=== PATIENT | female | born 1935 | race Caucasian/White ===

== ENCOUNTER 2016-07-20 08:12 | Outpatient (CLI) | payer MEDICARE, BC ==
--- NOTE | 2016-07-20 16:21 | Ultrasound Report ---
PELVIC ULTRASOUND: 07/20/2016 CLINICAL HISTORY: This is a 81-year-old who on preceding ultrasound from 2015 demonstrated a left ovarian cyst measuring 1.7 cm. The present examination is being done for reevaluation of the cyst. The cyst on preceding ultrasound measured 1.7 cm. The patient has had a prior hysterectomy. TECHNIQUE: Transabdominal pelvic ultrasound performed for global evaluation. Transvaginal pelvic ultrasound performed for detailed evaluation. Real-time scanning performed and static images obtained. FINDINGS: Transabdominal and transvaginal ultrasound was done today. On transvaginal ultrasound, there appears to be an echogenic structure within each vaginal recess. Within the right posterior vaginal recess, is an echogenic focus measuring 0.6 cm. Within the left lateral vaginal recess, is seen an echogenic focus measuring 1.2 cm. These foci are nonspecific. They may represent mucus or dystrophic calcification. If patient still has a cervical remnant, these could represent dystrophic calcifications within the cervical remnant. There is some mild shadowing in association with these hyperechoic structures. They are most likely of benign etiology. A left Bartholin duct cyst is once again noted measuring 2.8 cm by 2.7 cm by 3.1 cm. The right ovary has been surgically removed. The left ovary measures 4.4 cm by 3.4 cm by 2.6 cm for a volume of 20.3 cubic centimeters. The left ovary contains two small cysts within it, the largest one measures 2.2 cm by 1.9 cm by 1.8 cm. This cyst has a benign configuration. It is only minimally increased in size as compared to preceding exam. IMPRESSION: 1. TWO HYPERECHOIC STRUCTURES ARE NOTED WITHIN THE LATERAL VAGINAL RECESSES OR WITHIN A CERVIX REMNANT. THESE PROBABLY REPRESENT DYSTROPHIC CALCIFICATIONS OR MUCUS. 2. A 2.8 CM BY 2.7 CM BY 3.1 CM LEFT BARTHOLIN CYST IS ONCE AGAIN NOTED. THIS CYST WAS SEEN ON PRECEDING EXAM. IT SHOWS ONLY MILD INCREASE IN SIZE COMPARED TO PRECEDING EXAM. 3. TWO SMALL BENIGN CYSTS ARE NOTED IN THE LEFT OVARY, THE LARGEST OF WHICH MEASURES 2.2 CM BY 1.9 CM BY 1.8 CM. THIS CYST ONLY SHOWS MINIMALLY INCREASED SIZE COMPARED TO PRECEDING EXAM WHEN IT ACTUALLY HAD A MAXIMAL DIAMETER OF 1.7 CM. 15:9:38 JOB #: [id number] EXT JOB #: [id number] FELA
== END 2016-07-20 08:13 | disposition home or self-care (01) ==
LOC: DI 08:12
PROVIDERS: ATTEND Internal Medicine
DX: N75.0 Cyst of Bartholin's gland (principal); N83.202 Unspecified ovarian cyst, left side; R93.8 Abnormal findings on diagnostic imaging of other specified body structures
CPT/HCPCS: 76830; 76856

== ENCOUNTER 2016-08-03 07:30 | Day surgery (SDC) | payer MEDICARE, BC ==
[2016-08-03] MEDS ORDERED: KETOROLAC 0.45% OPHTH DROPS LEFTEYE ONE (07:52)
[2016-08-03] MEDS ORDERED: LACTATED RINGERS 500 ML IV ONE (08:03)
[2016-08-03] MEDS ORDERED: levoFLOXacin 0.5% OPHTH DROPS 5 ML OPTH ONE (09:21)
[2016-08-03] MEDS ORDERED: NEOMYCIN/POLYMYX/DEXAMETH OPHTH OINT OPTH ONE (09:21)
[2016-08-03] MEDS ORDERED: EPINEPHrine 1 MG/ML AMP IO ONE (09:21)
[2016-08-03] MEDS ORDERED: BRIMONIDINE 0.2% OPHTH DROPS 5 ML OPTH ONE (09:21)
[2016-08-03] MEDS ORDERED: PROPARACAINE 0.5% OPHTH DROPS 15 ML OPTH ONE (09:21)
[2016-08-03] MEDS ORDERED: CHONDR SULF/HYALURONATE SYRINGE IO ONE (09:22)
[2016-08-03] MEDS ORDERED: BSS/LIDOCAINE/EPINEPHRINE 1 ML SYRINGE IO ONE (09:22)
[2016-08-03] MEDS ORDERED: MIDAZOLAM 2 MG/2 ML VIAL IVP ONE (09:31)
[2016-08-03] MEDS ORDERED: LIDOCAINE-MPF 2% 5 ML VIAL IM ONE (09:31)
[2016-08-03] MEDS ORDERED: PROPOFOL 200 MG/20 ML VIAL IVP ONE (09:31)
[2016-08-03 10:07] VITALS: BP 122/57
--- NOTE | 2016-08-03 10:10 | OPERATIVE REPORT ---
DATE OF SURGERY: 08/03/2016 00:00:00 PREOPERATIVE DIAGNOSIS: Visually impairing cataract, left eye. POSTOPERATIVE DIAGNOSIS: Visually impairing cataract, left eye. NAME OF PROCEDURE: Phacoemulsification cataract extraction with intraocular lens implant of the left eye, clear corneal lateral approach, format type TT. SURGEON: Tavo Lucas MD ANESTHESIA: Topical 0.5% tetracaine with monitored sedation and intracameral Shugarcaine given at the beginning of the surgical procedure. COMPLICATIONS: None. DESCRIPTION OF SURGICAL PROCEDURE: The patient was brought to the OR and, after IV and cardiac leads were placed, the patient was then prepped and draped in the usual ophthalmic manner. An adhesive pl astic drape was placed over the eye, a slit was made in the drape, and topical anesthetic was placed on the eye. A lid speculum was used to separate the eyelids and expose the eye. The eye was held se curely with the Colibri forceps. A Micro-Sharp blade was used to make a self-sealing stab wound 2 o' clock hours to the left of the planned clear corneal incision. Viscoelastic was used to fill the an terior chamber, and a crescent blade was used to make the initial vertical component of the self-seal ing clear corneal incision. A 2.75 keratome was used to complete the incision. A circular tear caps ulorrhexis was performed. The nucleus was hydrodissected, and phacoemulsification of the cataract wa s performed without complication. The I/A unit was used to remove the cortical material from the eye . The posterior capsule was polished crystal clear with the Diane capsule polisher, and again the I/ A unit was used to remove any loose particulate matter after polishing the capsule. Viscoelastic was used to inflate the capsular bag. An AcrySof lens was inserted into the capsular bag with the loops left at about the 3 o'clock and 9 o'clock meridians. The I/A unit was used to remove as much Viscoe lastic from the eye as possible. BSS was used to fill the anterior chamber, with the wound found to be self-sealing and water tight. Several drops of Quixin were placed on the eye. The lid speculum w as removed. A drop of brimonidine was placed on the eye. Maxitrol ointment was placed on the eye. The eye was patched and shielded, and the patient was taken to the recovery room in good condition. JOB #: [id number] EXT JOB #:[id number]
== END 2016-08-03 07:31 | disposition home or self-care (01) ==
LOC: SDS 07:30
PROVIDERS: ATTEND Specialist
PROC: 08RK3JZ Replacement of Left Lens with Synthetic Substitute, Percutaneous Approach (ICD-10-PCS; principal; 2016-08-03 09:00)
DX: H26.9 Unspecified cataract (principal); Z90.710 Acquired absence of both cervix and uterus; Z87.891 Personal history of nicotine dependence
CPT/HCPCS: 66984; V2632

== ENCOUNTER 2016-11-04 07:17 | Outpatient (CLI) | payer MEDICARE, BC ==
[2016-11-04 11:26] LABS: BASOPHILS % (AUTO) 0.5 %; EOSINOPHILS # (AUTO) 0.1 10^3/uL (0.0-0.7); EOSINOPHILS % (AUTO) 2.7 %; HCT - HEMATOCRIT 40.2 % (37.0-47.0); HGB - HEMOGLOBIN 13.4 g/dL (12.0-16.0); LYMPHOCYTES # (AUTO) 1.7 10^3/uL (1.5-3.5); LYMPHOCYTES % (AUTO) 34.9 %; MEAN CORPUSCULAR HEMOGLOBIN 30.1 pg (27.0-31.0); MEAN CORPUSCULAR HGB CONC 33.4 g/dL (32.0-36.0); MEAN CORPUSCULAR VOLUME 90.2 fL (81.0-99.0); MEAN PLATELET VOLUME 10.7 fL (7.9-10.8); MONOCYTES # (AUTO) 0.3 10^3/uL (0.0-1.0); MONOCYTES % (AUTO) 6.6 %; NEUTROPHILS # (AUTO) 2.7 10^3/uL (1.5-6.6); NEUTROPHILS % (AUTO) 55.3 %; NUCLEATED RED BLOOD CELLS AUTO 0.1 /100WBC; RED BLOOD COUNT 4.45 10^6/uL (4.20-5.40); RED CELL DISTRIBUTION WIDTH 12.7 % (12.0-15.0); UNCORRECTED WHITE BLOOD COUNT 4.9 x10^3/uL; WHITE BLOOD COUNT 4.9 x10^3/uL (4.8-10.8)
[2016-11-04 11:40] LABS: ALBUMIN/GLOBULIN RATIO 1.4 (1.0-2.2); BILIRUBIN,TOTAL 0.4 mg/dL (0.2-1.0); BUN - BLOOD UREA NITROGEN 19 mg/dL (6-20); CALCIUM 9.5 mg/dL (8.5-10.3); CARBON DIOXIDE - CO2 31 mmol/L (21-32); CHLORIDE 102 mmol/L (101-111); CHOL/HDL RATIO 2.9 (<4.4); CHOLESTEROL 250 mg/dL; CREATININE 0.8 mg/dL (0.4-1.0); GFR - MDRD 69 (>89); GLUCOSE 97 mg/dL (70-100); HDL CHOLESTEROL 87 mg/dL; LDL/HDL RATIO 1.7 (<4.4); POTASSIUM 3.7 mmol/L (3.5-5.0); SODIUM 139 mmol/L (135-145); TOTAL PROTEIN 6.8 g/dL (6.7-8.2); TRIGLYCERIDES 57 mg/dL; VLDL CHOLESTEROL 11 mg/dL
== END 2016-11-04 07:18 | disposition home or self-care (01) ==
LOC: LAB.F 07:17
PROVIDERS: ATTEND Family Medicine
DX: E78.5 Hyperlipidemia, unspecified (principal); E55.9 Vitamin D deficiency, unspecified; E03.9 Hypothyroidism, unspecified
CPT/HCPCS: 36415; 80053; 80061; 82306; 84443; 85025

== ENCOUNTER 2017-05-28 11:21 | Emergency (ER) | payer MEDICARE, BC ==
[2017-05-28 11:50] LABS: BASOPHILS % (AUTO) 0.6 %; EOSINOPHILS # (AUTO) 0.1 10^3/uL (0.0-0.7); EOSINOPHILS % (AUTO) 2.8 %; HGB - HEMOGLOBIN 14.2 g/dL (12.0-16.0); LYMPHOCYTES # (AUTO) 1.2 10^3/uL (1.5-3.5); LYMPHOCYTES % (AUTO) 26.4 %; MEAN CORPUSCULAR HEMOGLOBIN 30.1 pg (27.0-31.0); MEAN CORPUSCULAR HGB CONC 33.6 g/dL (32.0-36.0); MEAN CORPUSCULAR VOLUME 89.5 fL (81.0-99.0); MEAN PLATELET VOLUME 9.2 fL (7.9-10.8); MONOCYTES # (AUTO) 0.4 10^3/uL (0.0-1.0); MONOCYTES % (AUTO) 9.1 %; NEUTROPHILS # (AUTO) 2.9 10^3/uL (1.5-6.6); NEUTROPHILS % (AUTO) 61.1 %; PLT - PLATELET COUNT 126 10^3/uL (130-450); RED BLOOD COUNT 4.71 10^6/uL (4.20-5.40); WHITE BLOOD COUNT 4.7 x10^3/uL (4.8-10.8)
[2017-05-28 11:56] LABS: BILIRUBIN,URINE NEGATIVE (NEGATIVE); GLUCOSE, URINE (UA) NEGATIVE (NEGATIVE); KETONES,URINE (UA) NEGATIVE (NEGATIVE); LEUKOCYTE ESTERASE, URINE TRACE (NEGATIVE); NITRITE,URINE NEGATIVE (NEGATIVE); OCCULT BLOOD,URINE NEGATIVE (NEGATIVE); PH,URINE 5.5 PH (5.0-7.5); PROTEIN,URINE NEGATIVE (NEGATIVE); UROBILINOGEN,URINE 0.2 (NORMAL) E.U./dL (NORMAL)
[2017-05-28 12:01] LABS: CLARITY,URINE S (CLEAR)
[2017-05-28 12:03] LABS: ALBUMIN 4.6 g/dL (3.2-5.5); ALBUMIN/GLOBULIN RATIO 1.4 (1.0-2.2); BILIRUBIN,TOTAL 0.6 mg/dL (0.2-1.0); CREATININE 0.7 mg/dL (0.4-1.0); TOTAL PROTEIN 7.8 g/dL (6.7-8.2)
[2017-05-28] MEDS ORDERED: SODIUM CHLORIDE 0.9% 1,000 ML IV ONE (12:03)
[2017-05-28] MEDS ORDERED: DEXAMETHASONE 10 MG/ML VIAL IVP STA (12:03)
[2017-05-28] MEDS ORDERED: KETOROLAC 60 MG/2 ML VIAL IVP STA (12:03)
--- NOTE | 2017-05-28 12:10 | ED Physician Documentation ---
PD HPI BACK PAIN - Stated complaint Stated Complaint: LOWER RT BACK PAIN - Chief complaint Chief Complaint: Abd Pain - History obtained from History obtained from: Patient - History of Present Illness Timing - onset: Enter time (0700), Today Timing - duration: Hours Timing - details: Abrupt onset, Still present Location: Lower, Right Quality: Pain, Spasm, Sharp Associated symptoms: No: Fever, Weakness, Numbness, Incontinent of urine, Unable to urinate, Hematuria, Incontinent of stool Improves with: Rest, Position Worsened by: Movement, Lifting, Twisting Contributing factors: Other (spent the day in the garden yesterday) Similar symptoms before: Diagnosis (back strain never this bad) Recently seen: Not recently seen - Additional information Additional information: Previously healthy 81-year-old female spent the day in her garden yesterday and this morning when she awoke she had some mild pain in her back she went to bend over and had severe pain that wraps around to her groin on the front. She has pain with any movement and pain at rest. Her pain is worse than she has ever had with her back and she is coming to the emergency department for evaluation. She is getting ready to go on a trip to [place] and thinks that she would not do well with this while she is traveling. She would like a note in case she decides to cancel her trip. Review of Systems Constitutional: denies: Fever Eyes: denies: Decreased vision Ears: denies: Ear pain Nose: denies: Congestion Throat: denies: Sore throat Cardiac: denies: Chest pain / pressure Respiratory: denies: Dyspnea, Cough GI: denies: Abdominal Pain, Nausea, Vomiting : denies: Dysuria, Frequency Skin: denies: Rash Musculoskeletal: reports: Back pain. denies: Neck pain Neurologic: denies: Generalized weakness, Focal weakness, Numbness PD PAST MEDICAL HISTORY - Past Medical History Cardiovascular: High cholesterol Respiratory: Other Endocrine/Autoimmune: None GI: None : Kidney stones HEENT: Chronic vision loss Psych: Anxiety Musculoskeletal: Osteoarthritis Derm: Rosacea, Other - Past Surgical History Past Surgical History: Yes General: Cholecystectomy, Colonoscopy /WELLNESS NURSE: Hysterectomy HEENT: Tonsil/Adenoidectomy - Present Medications Home Medications: Ambulatory Orders Medication Instructions Recorded Confirmed Estradiol 0.05 mg Patch [Climara] 1 patch ID ONCE 01/09/15 08/03/16 Cyclobenzaprine [Flexeril] 10 mg PO TID PRN #20 tablet 05/28/17 HYDROcod/ACETAM 5/325 [Olmitz 5/325] 1 - 2 ea PO Q6H PRN #15 tablet 05/28/17 - Allergies Allergies/Adverse Reactions: Allergies Allergy/AdvReac Type Severity Reaction Status Date / Time No Known Drug Allergies Allergy Verified 05/28/17 11:27 - Social History Does the pt smoke?: No Smoking Status: Never smoker Does the pt drink ETOH?: Yes Does the pt have substance abuse?: No - Immunizations Immunizations are current?: Yes - POLST Patient has POLST: Yes PD ED PE NORMAL - Vitals Vital signs reviewed: Yes (normal ) - General General: Alert and oriented X 3, No acute distress, Well developed/nourished - HEENT HEENT: Atraumatic, PERRL, EOMI - Neck Neck: Supple, no meningeal sign - Respiratory Respiratory: No respiratory distress - Abdomen Abdomen: Soft, Non tender - Back Back: No CVA TTP, No spinal TTP, Other (There is specific and reproducible tenderness to the paraspinous muscles on the right lower lumbar spine extending into the sciatic notch. 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, No motor deficit, No sensory deficit, Normal speech Eye Opening: Spontaneous Motor: Obeys Commands Verbal: Oriented GCS Score: 15 - Psych Psych: Normal mood, Normal affect Results - Vitals Vitals: Vital Signs - 24 hr 05/28/17 11:24 Temperature 36.4 C L Heart Rate 68 Respiratory 16 Rate Blood Pressure 118/64 O2 Saturation 98 Oxygen O2 Source Room air - Labs Labs: Laboratory Tests 05/28/17 05/28/17 05/28/17 11:33 11:41 11:41 WBC 4.7 L RBC 4.71 Hgb 14.2 Hct 42.2 MCV 89.5 MCH 30.1 MCHC 33.6 RDW 13.0 Plt Count 126 L MPV 9.2 Neut # 2.9 Lymph # 1.2 L Zapata # 0.4 Eos # 0.1 Baso # 0.0 Absolute Nucleated RBC 0.00 Nucleated RBC % 0.0 Sodium 137 Potassium 4.4 Chloride 97 L Carbon Dioxide 30 Anion Gap 10.0 BUN 15 Creatinine 0.7 Estimated GFR (MDRD) 81 L Glucose 105 H Calcium 10.0 Total Bilirubin 0.6 AST 24 ALT 17 Alkaline Phosphatase 44 Total Protein 7.8 Albumin 4.6 Globulin 3.2 Albumin/Globulin Ratio 1.4 Lipase 19 L Urine Color YELLOW Urine Clarity S Urine pH 5.5 Ur Specific [place] <=1.005 Urine Protein NEGATIVE Urine Glucose (UA) NEGATIVE Urine Ketones NEGATIVE Urine Occult Blood NEGATIVE Urine Nitrite NEGATIVE Urine Bilirubin NEGATIVE Urine Urobilinogen 0.2 (NORMAL) Ur Leukocyte Esterase TRACE H Urine RBC 0-5 Urine WBC 4-5 Ur Squamous Epith Cells MOD Squamous H Urine Bacteria None Seen Ur Microscopic Review INDICATED Urine Culture Comments NOT INDICATED Procedures - IVC sono (time) 1200 Bedside IVC sono: IVC measures (cm) (0.59), IVC collapsed c insp (cm) (complete) , Dehydration (est 3 liters down.) PD MEDICAL DECISION MAKING - ED course Complexity details: reviewed old records, reviewed results, re-evaluated patient , considered differential, d/w patient ED course: 81-year-old female who has been the day in the garden yesterday has acute lower lumbar spasm with radiation into the right groin and she does not have any other radicular findings. She does have specific point tenderness and on interrogation of the inferior vena cava she is found to be significantly dehydrated. She is administered intravenous saline Toradol and dexamethasone. Departure - Departure Disposition: 01 Home, Self Care Clinical Impression: Dehydration Sciatica Qualifiers: Laterality: right Qualified Code(s): M54.31 - Sciatica, right side Condition: Stable Instructions: ED Spasm Back No Trauma, ED Dehydration, ED Sciatica Follow-Up: Hubert Shelley MD [Primary Care Provider] - Prescriptions: Cyclobenzaprine [Flexeril] 10 mg PO TID PRN #20 tablet PRN Reason: Spasms HYDROcod/ACETAM 5/325 [Olmitz 5/325] 1 - 2 ea PO Q6H PRN #15 tablet PRN Reason: Pain Forms: Activity restrictions
[2017-05-28 12:18] LABS: BACTERIA,URINE None Seen /HPF (None Seen); RBC,URINE 0-5 /HPF (0-5); SQUAMOUS EPITHELIAL CELL,UR MOD Squamous (<= Few)
[2017-05-28 13:31] VITALS: BP 120/60
== END 2017-05-28 13:28 | disposition home or self-care (01) ==
LOC: ED 11:21
DX: E86.0 Dehydration (principal); M54.31 Sciatica, right side; E78.00 Pure hypercholesterolemia, unspecified; M19.90 Unspecified osteoarthritis, unspecified site
CPT/HCPCS: 36415; 80053; 81001; 81003; 83690; 85025; 87086; 96361; 96374; 96375; 99283; 99284

== ENCOUNTER 2017-11-27 09:13 | Outpatient (CLI) | payer MEDICARE, BC ==
--- NOTE | 2017-11-28 14:00 | Mammography Report ---
Reason: SCREENING MAMMO Procedure Date: 11/27/2017 Accession Number: [id number] / [id number] Procedure: LIYA - Screening Mammo Dig Bilat CPT Code: FULL RESULT: EXAM: Screening Mammo Dig Bilat DATE: 11/27/2017 11:08 AM CLINICAL HISTORY: 82 year-old nulliparous female presents for screening mammogram. TECHNIQUE: Bilateral CC, laterally exaggerated CC, MLO views were obtained. COMPARISON: 12/16/2015, 08/01/2013, 01/23/2013. FINDINGS: The breasts demonstrate heterogeneously dense fibroglandular parenchyma bilaterally. Typically benign coarse calcifications are seen in the right breast. No suspicious masses, clustered microcalcifications, or regions of architectural distortion are identified. IMPRESSION: Benign findings RECOMMENDATION: Routine annual screening unless otherwise clinically indicated. BIRADS CATEGORY 2: Benign findings STANDARD QUALIFYING STATEMENTS: 1. This examination was not reviewed with the aid of Computer-Aided Detection (CAD). 2. A negative or benign imaging report should not delay biopsy if clinically suspicious findings are present. Consider surgical consultation if warrented. More than 5% of cancers are not identified by imaging. 3. Dense breasts may obscure an underlying neoplasm. 4. This examination was reviewed without the aid of 3D breast imaging (tomosynthesis).
== END 2017-11-27 09:14 | disposition home or self-care (01) ==
LOC: DI 09:13
PROVIDERS: ATTEND Radiology Diagnostic Radiology
DX: Z12.31 Encounter for screening mammogram for malignant neoplasm of breast (principal)
CPT/HCPCS: 77067

== ENCOUNTER 2018-06-30 10:15 | Outpatient (CLI) | payer MEDICARE, BC ==
[2018-07-02 14:15] LABS: MEAN CORPUSCULAR HEMOGLOBIN 30.2 pg (27.0-31.0); MEAN CORPUSCULAR HGB CONC 33.5 g/dL (32.0-36.0); MEAN CORPUSCULAR VOLUME 90.3 fL (81.0-99.0); MEAN PLATELET VOLUME 8.6 fL (7.9-10.8); PLT - PLATELET COUNT 168 10^3/uL (130-450); RED BLOOD COUNT 4.63 10^6/uL (4.20-5.40); RED CELL DISTRIBUTION WIDTH 12.7 % (12.0-15.0); WHITE BLOOD COUNT 5.4 x10^3/uL (4.8-10.8)
[2018-07-02 14:16] LABS: BASOPHILS # (AUTO) 0.1 10^3/uL (0.0-0.1); BASOPHILS % (AUTO) 0.9 %; EOSINOPHILS % (AUTO) 3.5 %; LYMPHOCYTES # (AUTO) 1.7 10^3/uL (1.5-3.5); LYMPHOCYTES % (AUTO) 31.4 %; MONOCYTES % (AUTO) 7.2 %; NEUTROPHILS # (AUTO) 3.1 10^3/uL (1.5-6.6)
[2018-07-02 14:18] LABS: EOSINOPHILS # (AUTO) 0.2 10^3/uL (0.0-0.7); MONOCYTES # (AUTO) 0.4 10^3/uL (0.0-1.0)
[2018-07-02 14:20] LABS: BILIRUBIN,TOTAL 0.6 mg/dL (0.2-1.0); CALCIUM 9.7 mg/dL (8.5-10.3); CREATININE 0.8 mg/dL (0.4-1.0)
[2018-07-02 14:21] LABS: ALBUMIN/GLOBULIN RATIO 1.3 (1.0-2.2); TOTAL PROTEIN 7.2 g/dL (6.7-8.2)
== END 2018-06-30 10:16 | disposition home or self-care (01) ==
LOC: LAB 10:15
PROVIDERS: ATTEND Internal Medicine
DX: R53.83 Other fatigue (principal); E61.1 Iron deficiency
CPT/HCPCS: 36415; 80053; 82728; 83540; 84466; 85025

== ENCOUNTER 2018-07-05 11:11 | Outpatient (CLI) | payer MEDICARE, BC ==
[2018-07-05 12:03] LABS: % IRON SATURATION 26 % (20-50); IRON 92 ug/dL (28-170); TOTAL IRON BINDING CAPACITY 349 ug/dL (250-450); TRANSFERRIN 249 mg/dL (192-382)
== END 2018-07-05 11:12 | disposition home or self-care (01) ==
LOC: LAB 11:11
PROVIDERS: ATTEND Internal Medicine
DX: E61.1 Iron deficiency (principal); E61.6 Vanadium deficiency
CPT/HCPCS: 36415; 81599; 83540; 84466; 86480; 87207

== ENCOUNTER 2018-12-19 18:50 | Outpatient (CLI) | payer MEDICARE, BC ==
--- NOTE | 2018-12-19 20:57 | Ultrasound Report ---
Reason: EDEMA OF LOWER EXTREMITY Procedure Date: 12/19/2018 Accession Number: [id number] / [id number] Procedure: US - Duplex Ext Veins Left CPT Code: FULL RESULT: EXAM: LEFT LOWER EXTREMITY VENOUS ULTRASOUND EXAM DATE: 12/19/2018 07:34 PM. CLINICAL HISTORY: EDEMA OF LOWER EXTREMITY. COMPARISON: None. TECHNIQUE: Real-time sonographic vascular imaging was performed by the paediatric thoracic physician through the lower extremity utilizing both color-flow and Doppler spectral analysis. Multiple industrial relations representative static images were saved for review. FINDINGS: Common Femoral Vein (CFV): Normal. CFV-GSV Junction: Normal. Profunda Femoral Vein (PFV): Normal. Femoral Vein (FV) Prox: Normal. Femoral Vein (FV) Mid: Normal. Femoral Vein (FV) Dist: Normal. Popliteal Vein: Normal. Posterior Tibial Veins: Normal. Peroneal Veins: Normal. Contralateral Side CFV: Normal. Other: None. IMPRESSION: No evidence for deep venous thrombosis in the visualized left lower extremity. RADIA The call report notification system was initiated by Dr. Ashok Gaspar at 08:56 PM on 12/19/2018.
--- NOTE | 2018-12-21 04:28 | XRAY Report ---
Reason: PAIN IN LEFT FOOT Procedure Date: 12/19/2018 Accession Number: [id number] / [id number] Procedure: XR - Foot 3 View LT CPT Code: FULL RESULT: EXAM: LEFT FOOT RADIOGRAPHY EXAM DATE: 12/19/2018 07:06 PM. CLINICAL HISTORY: PAIN IN LEFT FOOT. COMPARISON: None. TECHNIQUE: 3 views. FINDINGS: Bones: No fracture seen. Joints: No dislocation. Degenerative joint disease in the first MTP joint. Hammertoes of the second through fifth digits. Degenerative joint disease in the talonavicular joint. Soft Tissues: Mild soft tissue swelling. IMPRESSION: 1. Mild degenerative changes as noted. 2. Hammertoes of the second through fifth digits. RADIA
== END 2018-12-19 18:51 | disposition home or self-care (01) ==
LOC: DI 18:50
PROVIDERS: ATTEND Nurse Practitioner Family
DX: R60.0 Localized edema (principal); M19.072 Primary osteoarthritis, left ankle and foot; M20.42 Other hammer toe(s) (acquired), left foot

== ENCOUNTER 2018-12-20 09:19 | Outpatient (CLI) | payer MEDICARE, BC ==
--- NOTE | 2018-12-20 11:30 | Mammography Report ---
Reason: SCREENING MAMMO Procedure Date: 12/20/2018 Accession Number: [id number] / [id number] Procedure: MGS - Screening Mammo Dig Bilat CPT Code: FULL RESULT: EXAM: Screening Mammo Dig Bilat DATE: 12/20/2018 9:49 AM CLINICAL HISTORY: Nulliparous patient for routine screening TECHNIQUE: (B) - Bilateral CC and MLO views were obtained. COMPARISON: 11/27/2017, 12/16/2015, 02/04/2014, 08/01/2013, in 01/23/2013, 01/10/2013, 01/10/2012, 01/06/2011 PARENCHYMAL PATTERN: (VD) - The breasts demonstrate extremely dense parenchyma bilaterally, limiting the sensitivity of mammography. FINDINGS: No significant interval change on the right. There are no suspicious masses, calcifications, or areas of distortion. On the left there is a possible area of developing architectural distortion in the posterior superior breast seen only on the MLO projection. Suggest further evaluation by spot compression and true lateral views and ultrasound if needed. IMPRESSION: Incomplete examination. BI-RADS category 0. Needs additional evaluation left breast. Negative right breast. RECOMMENDATION: (ANNUAL) - Recommend routine annual screening mammography. BI-RADS CATEGORY: (0) - Incomplete Examination - need additional evaluation. STANDARD QUALIFYING STATEMENTS: 1. This examination was not reviewed with the aid of Computer-Aided Detection (CAD). 2. A negative or benign imaging report should not preclude biopsy if clinically suspicious findings are present. 3. Dense breasts may obscure an underlying neoplasm. 4. This examination was reviewed without the aid of 3D breast imaging (tomosynthesis).
== END 2018-12-20 09:20 | disposition home or self-care (01) ==
LOC: DI.S 09:19
DX: Z12.31 Encounter for screening mammogram for malignant neoplasm of breast (principal); R92.8 Other abnormal and inconclusive findings on diagnostic imaging of breast
CPT/HCPCS: 77067

== ENCOUNTER 2019-10-01 09:29 | Outpatient (CLI) | payer MEDICARE, BC ==
--- NOTE | 2019-10-02 10:59 | Mammography Report ---
BILATERAL DIGITAL DIAGNOSTIC MAMMOGRAM 3D/2D: 10/01/2019 CLINICAL: 6 month follow-up architectural distortion left breast /screening right breast. Comparison is made to exams dated: 01/22/2019 mammogram, 12/20/2018 mammogram, 11/27/2017 mammogram, 12/16/2015 mammogram, 02/04/2014 mammogram, and 08/01/2013 mammogram - [facility]. Th e tissue of both breasts is predominantly fatty. No significant masses, calcifications, or other findings are seen in either breast. IMPRESSION: NEGATIVE There is no abnormality seen in the left breast to correspond with the mammography finding in the upp er outer quadrant. There is no mammographic evidence of malignancy. A 1 year screening mammogram is recommended. This exam was interpreted at Station ID: [id number]. NOTE: For mammograms, a report in lay terms will be sent to the patient. Approximately 15% of breast malignancies will not be visualized mammographically. In the management of a palpable breast mass, a negative mammogram must not discourage biopsy of a clinically suspicious lesion. Electronically Signed By: Wili galloway/tello:10/01/2019 11:03:07 ACR BI-RADS Category 1: Negative 3341F PARENCHYMAL PATTERN: (F) - The breast(s) demonstrate(s) diffuse fatty replacement. BI-RADS CATEGORY: (1) - 1 RECOMMENDATION: (ANNUAL) - Recommend routine annual screening mammography. [id number] 1 year screening LATERALITY: (B)
== END 2019-10-01 09:30 | disposition home or self-care (01) ==
LOC: DI 09:29
PROVIDERS: ATTEND Nurse Practitioner Family
DX: R92.8 Other abnormal and inconclusive findings on diagnostic imaging of breast (principal)
CPT/HCPCS: 77066

== ENCOUNTER 2019-12-12 13:07 | Outpatient (CLI) | payer MEDICARE, BC | END 2019-12-12 13:08 | disposition home or self-care (01) | LOC: DI 13:07 | PROVIDERS: ATTEND Registered Nurse | DX: I51.7 Cardiomegaly (principal) | CPT/HCPCS: 93306 ==